=== PATIENT | female | born 1975 | race Caucasian/White ===

== ENCOUNTER 2021-02-19 16:03 | Outpatient (CLI) | payer BC, SELFPAY ==
--- NOTE | ~2021-02-19 | CT_ITS ---
EXAMINATION: CT abdomen pelvis w con INDICATION: Right lower quadrant pain TECHNIQUE: Computed tomographic images of the abdomen and pelvis were obtained after the administrati on of 100 cc of Omnipaque 350 intravenous contrast. The dose-length product (DLP) was 397.19 mGy-cm. Automated exposure control and iterative reconstruction technique were employed. COMPARISON: 03/29/2014 FINDINGS: The lung bases are clear. The heart size is normal. The liver, pancreas, and adrenal glands are normal. Hypoattenuating lesions of the spleen measuring up to 7 mm likely represent cysts or lym phangiomas. Stones are present in the nondistended gallbladder. The kidneys are unremarkable. No path ologically enlarged abdominal or pelvic lymph nodes are identified. There is no free intraperitoneal gas or evidence of bowel obstruction. The appendix is normal. A corpus luteum is noted in the left ov jolanta. There is a 3 mm stone at the right ureterovesicular junction without significant hydroureteronep hrosis. There is moderate lumbar spondylosis at L5-S1. IMPRESSION: 1. 3 mm stone at the right ureterovesicular junction without significant hydroureteronephrosis. Reviewed, dictated and finalized at location A. IMPRESSION: 1. 3 mm stone at the right ureterovesicular junction without significant hydrou reteronephrosis.
== END 2021-02-19 16:04 | disposition home or self-care (01) ==
LOC: ANHIMG 16:08
PROVIDERS: PCP Physician Assistant; Visit Provider Physician Assistant
DX: R10.31 Right lower quadrant pain (principal); N20.1 Calculus of ureter
CPT/HCPCS: 74177; Q9967

== ENCOUNTER 2021-04-18 10:32 | Outpatient (CLI) | payer BC, SELFPAY ==
--- NOTE | ~2021-04-18 | US_ITS ---
EXAMINATION: US renal BI EXAM DATE: 04/18/2021 11:08 INDICATION: Ureteral stone. Right ureteral stone at the UVJ on prior CT. TECHNIQUE: Multiple grayscale and Doppler images of the kidneys were obtained (by a technologist who performed the scan) and subsequently reviewed. Correlation is made to CT abdomen pelvis 02/19/2021. FINDINGS: Right kidney: There is normal contour and echogenicity. It measures 10.5 x 3.7 x 5.6 centimeters. T here are no focal renal lesions identified. There is no hydronephrosis. Left kidney: There is normal contour and echogenicity. It measures 10.8 x 5.0 x 4.1 centimeters. Th ere are no focal renal lesions identified. There is no hydronephrosis. Bladder unremarkable. IMPRESSION: 1. Sonographically unremarkable kidneys. Reviewed, dictated and finalized at location B. ER
== END 2021-04-18 10:33 | disposition home or self-care (01) ==
PROVIDERS: PCP Physician Assistant; Visit Provider Urology
DX: N20.1 Calculus of ureter (principal)
CPT/HCPCS: 76775